=== PATIENT | male | born 1940 | race Caucasian/White ===

== ENCOUNTER 2018-08-16 09:15 | Inpatient (IN) ==
[2018-08-09 12:36] LABS: Appearance,Urine HAZY; Bilirubin,Urine NEG (NEG); Color,Urine YELLOW; Glucose,Urine (UA) NEGATIVE (NEG); Leukocyte Esterase,Urine NEG /uL (NEG); Protein,Urine NEG (NEG); Specific Gravity,Urine 1.016 (1.000-1.035); Urine Blood NEG mg/dL (<0.03); Urobilinogen,Urine NEG (NEG)
[2018-08-09 13:03] LABS: Basophils # (Auto) 0 K/mcL (0.0-0.3); Basophils % (Auto) 0.5 % (0.0-2.0); Eosinophils # (Auto) 0.1 K/mcL (0.0-0.7); Eosinophils % (Auto) 2.4 % (0.0-7.0); Granulocytes % (Auto) 62.9 % (38.0-78.0); Lymphocytes # (Auto) 1.4 K/mcL (1.5-4.8); Lymphocytes % (Auto) 24.9 % (15.5-49.0); Mean Corpuscular HGB Conc 33.6 g/dL (31.0-36.0); Mean Corpuscular Hemoglobin 31.9 pg (26.0-34.0); Monocytes # (Auto) 0.5 K/mcL (0.1-0.9); Monocytes % (Auto) 9.3 % (1.0-12.0); Platelet Count 176 K/mcL (140-440); RBC 5.06 M/mcL (4.50-5.90); Red Cell Distribution Width 12.7 % (11.5-14.5)
[2018-08-09 13:16] LABS: Blood Urea Nitrogen 22 mg/dl (8-23)
[~2018-08-16 09:15] MED LIST: CELECOXIB 200 MG CAPSULE PO SCH; PREGABALIN 75 MG CAPSULE PO SCH; ceFAZolin 1 GM VIAL IV SCH; oxyCODONE 10 MG TAB.ER.12H PO SCH
[2018-08-16] MEDS ORDERED: ONDANSETRON 4 MG/2 ML VIAL ONE (12:50)
[2018-08-16] MEDS ORDERED: TRANEXAMIC ACID 1,000 MG/10 ML VIAL IV ONE (12:55)
[2018-08-16] MEDS ORDERED: PROPOFOL 200 MG/20 ML VIAL IV ONE (12:55)
[2018-08-16] MEDS ORDERED: SUCCINYLCHOLINE 20 MG/ML ML IV ONE (12:55)
[2018-08-16] MEDS ORDERED: LIDOCAINE HCL/PF 100 MG/5 ML SYRINGE IV ONE (12:55)
[2018-08-16] MEDS ORDERED: MIDAZOLAM 5 MG/5 ML VIAL IV ONE (12:55)
[2018-08-16] MEDS ORDERED: PHENYLEPHRINE 10 MG/ML VIAL IV ONE (12:55)
[2018-08-16] MEDS ORDERED: ePHEDrine 50 MG/ML AMPUL IV ONE (12:55)
[2018-08-16] MEDS ORDERED: ONDANSETRON 4 MG/2 ML VIAL IV ONE (12:55)
[2018-08-16] MEDS ORDERED: fentaNYL 100 MCG/2 ML VIAL IV ONE (12:55)
[2018-08-16] MEDS ORDERED: DEXAMETHASONE 10 MG/ML VIAL IV ONE (12:55)
[2018-08-16] MEDS ORDERED: HEPARIN 20,000 UNIT/ML VIAL IR ONE (13:52)
[2018-08-16] MEDS ORDERED: ACETAMINOPHEN 1,000 MG/100 ML BOTTLE IV ONE (14:00)
[2018-08-16] MEDS ORDERED: IPRATROPIUM/ALBUTEROL 3 ML AMPUL.NEB NEB PRN (14:00)
[2018-08-16] MEDS ORDERED: ATROPINE SULFATE 0.4 MG/ML VIAL IV PRN (14:00)
[2018-08-16] MEDS ORDERED: METOPROLOL TARTRATE 5 MG/5 ML VIAL IV PRN (14:00)
[2018-08-16] MEDS ORDERED: FLUMAZENIL 0.1 MG/ML ML IV PRN (14:00)
[2018-08-16] MEDS ORDERED: diphenhydrAMINE 50 MG/ML VIAL IV PRN (14:00)
[2018-08-16] MEDS ORDERED: ePHEDrine 50 MG/ML AMPUL IV PRN (14:00)
[2018-08-16] MEDS ORDERED: HYDROmorphone 2 MG/ML VIAL IV PRN ×2 (14:00→14:33)
[2018-08-16] MEDS ORDERED: ONDANSETRON 4 MG/2 ML VIAL IV PRN ×2 (14:00→14:33)
[2018-08-16] MEDS ORDERED: fentaNYL 100 MCG/2 ML VIAL IV PRN (14:00)
[2018-08-16] MEDS ORDERED: LACTATED RINGERS 1,000 ML IV SCH (14:00)
[2018-08-16] MEDS ORDERED: MEPERIDINE 25 MG/ML SYRINGE IV PRN (14:00)
[2018-08-16] MEDS ORDERED: NALOXONE HCL 0.4 MG/ML VIAL IV PRN (14:00)
[2018-08-16] MEDS ORDERED: PROMETHAZINE 25 MG/ML VIAL IV PRN (14:00)
[2018-08-16] MEDS ORDERED: METHOCARBAMOL 1,000 MG/10 ML VIAL IV PRN (14:00)
[2018-08-16] MEDS ORDERED: MAGNESIUM HYDROXIDE 30 ML ORAL.SUSP PO PRN (14:33)
[2018-08-16] MEDS ORDERED: KETOROLAC 15 MG/ML VIAL IV PRN (14:33)
[2018-08-16] MEDS ORDERED: BENZOCAINE/MENTHOL 1 LOZENGE PO PRN (14:33)
[2018-08-16] MEDS ORDERED: BISACODYL 10 MG SUPP.RECT PR PRN (14:33)
[2018-08-16] MEDS ORDERED: POLYETHYLENE GLYCOL 3350 17 GM PACKET PO PRN (14:33)
[2018-08-16] MEDS ORDERED: HYDROCODONE/APAP 7.5/325MG TABLET PO PRN (14:33)
[2018-08-16] MEDS ORDERED: TRANEXAMIC ACID 1,000 MG/10 ML VIAL IV SCH (14:33)
[2018-08-16] MEDS ORDERED: FLEETS ADULT ENEMA PR PRN (14:33)
--- NOTE | 2018-08-16 14:33 | Brief Operative Note ---
Date of procedure: 08/16/18 Pre-op diagnosis: Left hip severe DJD Post-op diagnosis: same Procedure: Left anterior total hip arthroplasty Grafts/Implants: Yes (Depuy Actis 7 HO stem, +5 36mm delta head, 60 cup, +4.0 Altrx liner) Anesthesia: spinal, GLMA Findings: severe arthritis Complications: none Surgeon: Salvador Zamarripa Customer Service Specialist: Perfecto Enciso Estimated blood loss (cc): 250 Specimens Removed/Pathology: none sent Condition: stable Disposition: PACU
--- NOTE | 2018-08-16 15:18 | Operative Note ---
DATE OF OPERATION: 08/16/2018 PREOPERATIVE DIAGNOSIS: Left hip severe osteoarthritis. POSTOPERATIVE DIAGNOSIS: Left hip severe osteoarthritis. PROCEDURE PERFORMED: Left anterior total hip arthroplasty placing a DePuy Actis size 7 high offset femoral stem, a +5, 36 mm delta ceramic head ball, a 60 mm Hillman cup with a +4 neutral AltrX liner. SURGEON: Salvador Zamarripa MD CLOTHING AND TEXTILES TEACHER: Edson Enciso PA-C. ANESTHESIA: Spinal plus general. DRAINS: None. SPECIMENS: Femoral head and reamings, which were discarded. BLOOD LOSS: 250 mL COMPLICATIONS: None. POSTOPERATIVE CONDITION: Stable. INDICATIONS FOR SURGERY: This is a 77-year-old male who has had progressive worsening left hip pain. Radiographs showed advanced osteoarthritis. FINDINGS AT SURGERY: There were large osteophytes off the femoral head and neck. Post implantation showed good gnosticist of leg length and offset. PROCEDURE IN DETAIL: The patient had been seen preoperatively and informed consent had been obtained after discussion of risks and benefits of surgery. Risks including, but not limited to, bleeding, possibly requiring transfusion; infection, possibly requiring implant removal and prolonged IV antibiotics; injury to nerves, blood vessels or other surrounding structures; anesthetic risks; incomplete or no resolution of symptoms; leg length discrepancy; dislocation; fracture; DVT and pulmonary embolus risks; and the possibility of needing further surgery. He understood these risks and wished to proceed. Correct operative site was marked and the patient was taken to the operating room. General anesthesia was induced after spinal anesthesia given in preop holding. He was carefully positioned on the fracture table. The left hip and groin were carefully prepped and draped in normal sterile fashion and a timeout was performed verifying patient name, operative site, and plan. Standard anterior approach incision was made with a scalpel through skin and subcutaneous tissue. Hemostasis obtained with Bovie cautery. Careful blunt dissection taken down on the tensor fascia and this was undermined circumferentially. IrriSept was irrigated and then a ring retractor placed. Tensor fascia was incised in line with muscle fibers and careful blunt dissection taken medial to the muscle belly. Blunt cobra retractors were placed on the superior and inferior neck. Circumflex vessels were coagulated and cut and vastus fascia split distally. Anterior capsulectomy was performed with capsule releases taken out towards the trochanters. Corkscrew was placed in the femoral head. Osteotome was used under fluoro to identify our neck cut trajectory and then oscillating tip saw used to make our neck cut. The acetabulum was exposed and labrum excised circumferentially with soft tissue from the floor. We then started reaming directly medializing to the tear drop and then increased reamer size and angle until we had rim ream with a 59 reamer. A 60 mm 3-hole Hillman cup was opened. The acetabulum was irrigated with IrriSept, after a minute pulse lavaged with saline and then [id number] was used to impact the cup. We got excellent pressfit. We went ahead and placed a center hole cover. We went ahead and used a curved osteotome to remove inferior osteophyte and then a +4 neutral AltrX liner was placed due to preoperative templating to try and match the patient's offset. The tabs were carefully aligned and the liner impacted and carefully verified to be fully seated. We then removed traction. The leg was actually rotated, adducted, capsule released taken out towards greater trochanter. Box osteotome was used to gain canal entry and awl was used to identify trajectory. A rongeur and rasp were used to lateralize and then we sequentially broached up with [id number] until 6 stopped at our neck cut. We trialed with a high offset neck and a +5 head ball. The hip reduced with quite a bit of tension. AP pelvis was taken to verify neutral rotation and AP of the nonoperative and operative hips were overlaid. It appeared our leg lengths were lengthened somewhat and the stem appeared slightly undersized. We went ahead and redislocated. The neck cut also appeared high. I went ahead then and used the [id number] the broach down even lower with a 6 and then calcar planed down lower. We then lateralized some more and then were able to get a 7 down. We removed the broach, opened a 7 high offset Actis stem. The femoral canal was irrigated with IrriSept. After a minute we pulse lavaged with saline. The stem was then impacted with the [id number] until the collar was seated on the neck. We opened a +5 head ball. The stem was carefully cleaned and dried and the head ball was impacted with several blows of the mallet. We then reduced the hip with better tension this time. Final x-rays were taken and overlaid. Our leg lengths were equal, components in good position. Those were saved and printed. We irrigated with IrriSept, after a minute pulse lavaged with saline, and then a #1 Vicryl was used to close tensor fascia. Ring retractor was removed and IrriSept irrigated. After a minute we pulse lavaged with saline. Fat was tacked to fascia with Vicryl and then 2-0 Monocryl for subcutaneous and rock for skin. Xeroform sterile dressings were applied. The patient was awakened, extubated, and transferred to recovery in stable condition. PRADEEP:johanna Job ID: [id number] Doc ID: [id number] Salvador Zamarripa MD
--- NOTE | 2018-08-16 15:32 | XRay Report ---
CLINICAL INFORMATION: Postsurgical follow-up TECHNIQUE: AP pelvis. Crosstable lateral left hip COMPARISON: Previous preoperative evaluation dated 03/31/2018 FINDINGS: Status post left total hip arthroplasty. Acetabular and femoral head components are in anatomic positions. IMPRESSION: Status post left total hip arthroplasty Interpreted and Authenticated by: Nate Romero 08/16/18
[2018-08-16] MEDS: 0.9 % SODIUM CHLORIDE 1,000 ML IV SCH ×2 (15:53→22:47)
--- NOTE | 2018-08-16 16:51 | XRay Report ---
CLINICAL INFORMATION: Left hip arthroplasty TECHNIQUE: 0.6 minutes fluoroscopy utilized. Intraoperative spot films obtained. Left total hip arthroplasty performed. IMPRESSION: Intraoperative fluoroscopy utilized. Left total hip arthroplasty performed. Interpreted and Authenticated by: Nate Romero 08/16/18
[2018-08-16] MEDS ORDERED: ALLOPURINOL 300 MG TABLET PO SCH (21:00)
[2018-08-16] MEDS ORDERED: SENNOSIDES 1 TABLET PO SCH (21:00)
[2018-08-16] MEDS: DOCUSATE SODIUM 100 MG CAPSULE PO SCH (22:03)
[2018-08-16] MEDS: ASPIRIN 325 MG ENTERIC COATED TABLET PO SCH (22:04)
[2018-08-16] MEDS: ceFAZolin 1 GM VIAL IV SCH (22:28)
[2018-08-16] MEDS ORDERED: LISINOPRIL 10 MG TABLET ONE (22:51)
[2018-08-16] MEDS: 0.9 % SODIUM CHLORIDE 10 ML SYRINGE IV SCH (22:51)
[2018-08-17] MEDS: ceFAZolin 1 GM VIAL IV SCH (03:52)
[2018-08-17] MEDS: 0.9 % SODIUM CHLORIDE 10 ML SYRINGE IV SCH (05:20)
--- NOTE | 2018-08-17 08:34 | Discharge Summary ---
Providers - Providers Patient information: Note initiated : 08/17/18 at 7:46 am Service Date, if different from initiated Date: [] Patient: Nixon Lobo 77 y/o M admitted on 08/16/18 for Left Total Hip Arthroplasty. Chief Complaint: [] Discharge date: 08/17/18 Hospitalization Hospital course: Pt was admitted for a MARY, pt underwent the procedure on the day of admission. Pt will attend out-pt PT. Will take ASA for DVT prophylaxis. Will f/u at [facility] in 2 weeks. Discharge diagnosis: L Hip OA Exam - Exam Clean and dry: Yes Weight bearing status: as tolerated Ortho Discharge - MARY - Patient Instructions Diet: Regular Diet Activity: activity as tolerated Total Hip Protocol: Follow activity instructions as provided by Physical Therapy. Dressing Care: May shower in 2 days - Follow Up Plan Follow Up Appointments: Salvador Zamarripa MD [Physician] - 08/31/18 8:50 am Disposition: Left Against Medical Advice Prognosis: Good Rehab Potential: Good Overall status at discharge: patient is progressing back to baseline - Orders For Discharge Prescriptions: Aspirin [Ecotrin] 325 mg PO BID #60 tab.ec Hydrocodone/APAP 7.5/325Mg [Wellman 7.5-325Mg] 1 - 2 tab PO Q4HP PRN #50 tab PRN Reason: Pain Level 3-6 Pending Studies Resuscitation Status Full Code Diet Regular Diet Start TueAug 16 1435 Hydrocodone Bitart/Acetaminophen (Wellman 7.5/325mg) 0 tab PO Q4HP PRN PRN Reason: PAIN LEVEL 3-6 Last Admin: 08/16/18 18:30 Dose: 2 tab Allopurinol (Zylopriim) 300 mg PO HS [facility] Last Admin: 08/16/18 22:04 Dose: 300 mg Aspirin (Ecotrin) 325 mg PO BID [facility] Last Admin: 08/16/18 22:04 Dose: 325 mg Docusate Sodium (Colace) 100 mg PO BID [facility] Last Admin: 08/16/18 22:03 Dose: 100 mg Sodium Chloride (Sodium Chloride 0.9%) 1,000 mls @ 125 mls/hr IV .Q8H [facility] Last Admin: 08/16/18 22:47 Dose: 125 mls/hr Infusion: 08/16/18 22:47 Dose: 125 mls/hr Admin: 08/16/18 15:53 Dose: 125 mls/hr Senna (Senokot) 2 tab PO HS [facility] Last Admin: 08/16/18 22:04 Dose: 2 tab Sodium Chloride (Saline Flush) 10 ml IV Q8 [facility] Last Admin: 08/17/18 05:20 Dose: Not Given Admin: 08/16/18 22:51 Dose: Not Given Shift Summary 08/17/18 04:34 Shift Summary by Jorje Kimble RM 128 Nixon Lobo A&Paige4. Pulse > 100, otherwise asymptomatic; Dressing to L hip with small amt of shadow drainage circled by PACU nurse. Wellman 7.5 mg x1 @ 1830 PRN pain; Abx Ancef 2 gm; Lisinopril 20 mg HS to replace Benazepril 20 mg HS as per Pharm; Voided 475 with PVR 274 @ 2329; Ambulated in hallway FWW , tolerated well; Foot pumps on. DRSG Change POD#2 Initialized on 08/17/18 04:34 - END OF NOTE
[2018-08-17] MEDS ORDERED: NON FORMULARY MEDICATION 1 DOSE MISCELL (Ubidecarenone [Coenzyme Q10] 100 MG) PO SCH (09:00)
[2018-08-17] MEDS ORDERED: CALCIUM (OYSTER SHELL) 500 MG TABLET PO SCH (09:00)
[2018-08-17] MEDS ORDERED: FAMOTIDINE 20 MG TABLET PO SCH (09:00)
[2018-08-17] MEDS ORDERED: MAGNESIUM OXIDE 400 MG TABLET PO SCH (09:00)
[2018-08-17] MEDS ORDERED: CELECOXIB 200 MG CAPSULE PO SCH (09:00)
[2018-08-17] MEDS ORDERED: NIACINAMIDE 500 MG PO SCH (09:00)
[2018-08-17] MEDS ORDERED: MULTIVIT,THER IRON,CA,FA & MIN 1 TABLET PO SCH (09:00)
[2018-08-17] MEDS ORDERED: VITAMIN D3 5,000 UNIT CAPSULE PO SCH (09:00)
[2018-08-17] MEDS ORDERED: ASCORBIC ACID 500 MG TABLET PO SCH (09:00)
[2018-08-17] MEDS ORDERED: VITAMIN B COMPLEX 1 CAPSULE PO SCH (09:00)
[2018-08-17] MEDS: 0.9 % SODIUM CHLORIDE 1,000 ML IV SCH (09:31)
[2018-08-17] MEDS: ASPIRIN 325 MG ENTERIC COATED TABLET PO SCH (09:34)
[2018-08-17] MEDS: DOCUSATE SODIUM 100 MG CAPSULE PO SCH (09:35)
[2018-08-17] MEDS ORDERED: LISINOPRIL 20 MG TABLET PO SCH (21:00)
[2018-08-17] MEDS ORDERED: BENAZEPRIL 10 MG TABLET PO SCH (21:00)
== END 2018-08-17 10:45 | disposition left against medical advice (07) | DRG 470 ==
LOC: MEDSUR 09:15
PROVIDERS: ADMIT Orthopaedic Surgery; ATTEND Orthopaedic Surgery
CPT/HCPCS: 62322; 73502; 97162; A6248; C1776; J0131; J0330; J0690; J1100; J1644; J2001; J2250; J2370; J2405; J3010; J7030; J7040; J7120